=== PATIENT | female | born 1950 | race Hispanic/Latino ===

== ENCOUNTER 2017-02-09 13:05 | Outpatient (CLI) | payer OTHER ==
--- NOTE | 2017-02-09 14:10 | XRay Report ---
KUB: The patient has diffuse pancreatic calcification. There is no obvious renal/urinary tract calcification identified. Degenerative and apophyseal bony changes are noted involving the right L3-4 joint. Degenerative spondylosis with narrowing of the L4-5 interspace is noted. No prior study for comparison. Impression: No obvious urinary tract calculus. Pancreatic calcifications.
== END 2017-02-09 13:06 | disposition home or self-care (01) ==
LOC: XRAY 13:05
PROVIDERS: ATTEND Urology
DX: N20.0 Calculus of kidney (principal); K86.89 Other specified diseases of pancreas; M47.896 Other spondylosis, lumbar region
CPT/HCPCS: 74000

== ENCOUNTER 2017-12-07 08:29 | Outpatient (CLI) | payer OTHER ==
--- NOTE | 2017-12-07 09:02 | Mammography Report ---
BILATERAL MAMMOGRAM: FINDINGS: The breasts are almost entirely fat (<25% glandular). No mass, distortion, suspicious calcification, or skin change is seen. No interval change compared to prior exam in July 2016. CAD was utilized. IMPRESSION: Negative mammogram. There is no mammographic evidence of malignancy. RECOMMENDATION: Follow-up per ACS guidelines. BI-RADS CATEGORY: 1 = Negative ACR BI-RADS MAMMOGRAPHIC CODES: 0 = Needs additional imaging evaluation; 1 = Negative; 2 = Benign; 3 = Probably benign; 4 = Suspicious; 5 = Malignant; 6 = Known biopsy-proven malignancy COMMENT: 1. Dense breast tissue, i.e., adenosis, fibrocystic changes, etc., may obscure an underlying neoplasm. 2. Approximately 10% of cancers are not detected with mammography. 3. A negative mammography report should not delay biopsy if a clinically suspicious mass is present. COMMENT: Patient follow-up letters are generated in [employer].
== END 2017-12-07 08:30 | disposition home or self-care (01) ==
LOC: SPVWC 08:29
PROVIDERS: ATTEND Obstetrics & Gynecology
DX: Z12.31 Encounter for screening mammogram for malignant neoplasm of breast (principal)
CPT/HCPCS: 77067

== ENCOUNTER 2019-10-24 10:48 | Outpatient (CLI) | payer OTHER ==
--- NOTE | 2019-10-25 09:55 | Mammography Report ---
DIGITAL SCREENING MAMMOGRAM WITH CAD, 10/24/2019 INDICATION: Routine screening mammography. TECHNIQUE: Digital bilateral 2D mammography was obtained in the craniocaudal and mediolateral obliq ue projections. This examination was interpreted with the benefit of Computer-Aided Detection analysi s. COMPARISON: 12/07/2017 FINDINGS: Breast Density: The breasts are almost entirely fatty. There is no evidence of dominant mass, suspicious calcifications or architectural distortion in eithe r breast. IMPRESSION: No mammographic evidence of malignancy. Follow up recommendation: Routine yearly BI-RADS Category 1: Negative. A "normal" or negative report should not discourage follow up or biopsy of a clinically significant f inding. A written summary of these findings will be mailed to the patient. The patient will be entered into a mammography reporting system which will generate a reminder letter for the patient's next appointmen t at the appropriate interval. The [employer] recommends yearly mammograms starting at age 40 and continuing as l heriberto as a woman is in good health. Breast MRI is recommended for women with an approximate 20-25% or greater lifetime risk of breast cancer, including women with a strong family history of breast or ova anastasiya cancer or who have been treated for Hodgkin's disease. Signer Name: Thony Padilla MD Signed: 10/25/2019 9:51 AM Workstation Name: [id number]
== END 2019-10-24 10:49 | disposition home or self-care (01) ==
LOC: SPVWC 10:48
PROVIDERS: ATTEND Obstetrics & Gynecology
DX: Z12.31 Encounter for screening mammogram for malignant neoplasm of breast (principal)
CPT/HCPCS: 77067

== ENCOUNTER 2020-10-25 08:50 | Outpatient (CLI) | payer OTHER ==
--- NOTE | 2020-10-30 08:09 | Mammography Report ---
DIGITAL SCREENING MAMMOGRAM WITH CAD, 10/29/2020 CLINICAL INFORMATION / INDICATION: Routine screening mammography. TECHNIQUE: Digital bilateral 2D mammography was obtained in the craniocaudal and mediolateral obliqu e projections. This examination was interpreted with the benefit of Computer-Aided Detection analysis . COMPARISON: 12/07/2017 FINDINGS: Breast Density: The breasts are almost entirely fatty. No dominant mass, suspicious calcifications, or architectural distortion in either breast. No interval change. IMPRESSION: No mammographic evidence of malignancy. Follow up recommendation: Routine yearly BI-RADS Category 1: Negative. A "normal" or negative report should not discourage follow up or biopsy of a clinically significant f inding. A written summary of these findings will be mailed to the patient. The patient will be entered into a mammography reporting system which will generate a reminder letter for the patient's next appointmen t at the appropriate interval. The [employer] recommends yearly mammograms starting at age 40 and continuing as l heriberto as a woman is in good health. Breast MRI is recommended for women with an approximate 20-25% or greater lifetime risk of breast cancer, including women with a strong family history of breast or ova anastasiya cancer or who have been treated for Hodgkin's disease. Signer Name: Diana Pat MD Signed: 10/30/2020 8:04 AM Workstation Name: [id number]
== END 2020-10-25 08:51 | disposition home or self-care (01) ==
LOC: SPVWC 08:50
PROVIDERS: ATTEND Obstetrics & Gynecology
DX: Z12.31 Encounter for screening mammogram for malignant neoplasm of breast (principal)
CPT/HCPCS: 77067